=== PATIENT | female | born 1955 | race Caucasian/White ===

== ENCOUNTER 2020-02-04 09:32 | Outpatient (CLI) | payer MEDICARE, OTHER, SELFPAY ==
--- NOTE | ~2020-02-04 | CT_ITS ---
EXAMINATION: CT abdomen pelvis wo con DATE: 02/04/2020 09:59 INDICATION: Hematuria. Right lower quadrant pain and tenderness. TECHNIQUE: Computed tomography (CT) of the abdomen and pelvis was performed without intravenous contr ast. Automated exposure control and iterative reconstruction technique were employed. The dose-length product was 393.55 mGy-cm. COMPARISON: 10/09/2015 FINDINGS: Lung bases are clear. Heart size is normal. No pericardial or pleural effusion. Liver, gallbladder, s pleen, pancreas, bilateral adrenal glands and kidneys are normal. No urolithiasis. Bowels are unremar kable with no wall thickening or obstruction. Partially decompressed bladder is normal. The uterus is not identified and has likely been surgically resected. Pessary in the vaginal vault. No free intrap eritoneal gas or fluid. No pathologically enlarged abdominal or pelvic lymphadenopathy. Moderate disc height loss with sclerotic degenerative endplate changes at L2-L3. Otherwise minimal scattered degen erative skeletal changes. IMPRESSION: 1. No urolithiasis or other acute intra-abdominal/pelvic process. Reviewed, dictated and finalized at location A.
--- NOTE | ~2020-02-04 | XR_ITS ---
XR abdomen/kub 1V DATE: 02/04/2020 09:51 INDICATION: Unspecified abdominal pain TECHNIQUE: 2 supine AP views COMPARISON: None FINDINGS: There is a moderately prominent amount of fecal material within the colon but no evidence o f bowel obstruction. The psoas shadows are intact. No visceromegaly is evident. No significant abnorm al calcification is evident. The lung bases appear clear. Heart size appears normal. Degenerative disease at L2-3 primarily. IMPRESSION: Moderately prominent of fecal material in the colon; no bowel obstruction Reviewed, dictated and finalized at Location A. Reviewed, dictated and finalized at location A. IMPRESSION: Moderately prominent of fecal material in the colon; no bowel obstr uction
== END 2020-02-04 09:33 | disposition home or self-care (01) ==
LOC: ANHIMG 09:35
PROVIDERS: Visit Provider Nurse Practitioner Family
DX: R31.9 Hematuria, unspecified (principal); R10.31 Right lower quadrant pain; R10.819 Abdominal tenderness, unspecified site
CPT/HCPCS: 74018; 74176

== ENCOUNTER 2021-08-14 12:03 | Outpatient (CLI) | payer MEDICARE, SELFPAY ==
--- NOTE | ~2021-08-14 | XR_ITS ---
XR chest 2V DATE: 08/14/2021 12:28 INDICATION: Cough for 10 days. Wheezing. TECHNIQUE: PA and lateral views COMPARISON: October 22, 2016 two-view chest FINDINGS: Normal heart size. No hilar or mediastinal enlargement. No pulmonary infiltrate or consolidation, pleural effusion or pulmonary vascular congestion or pneumo thorax. IMPRESSION: No active cardiopulmonary disease Reviewed, dictated and finalized at location B. TY GRAND [employer]URY
== END 2021-08-14 12:04 | disposition home or self-care (01) ==
PROVIDERS: Visit Provider Nurse Practitioner Family
DX: R05.9 Cough, unspecified (principal)
CPT/HCPCS: 71046

== ENCOUNTER → 2021-11-06 13:14 | Outpatient (CLI) | payer MEDICARE, SELFPAY ==
--- NOTE | ~2021-11-06 | MM_ITS ---
EXAMINATION: MM screening [facility] BI w [facility] HISTORY: Screening mammogram TECHNIQUE: Craniocaudal and mediolateral oblique 3-D tomosynthesis images were obtained and synthetic 2-D images were generated. CAD analysis was submitted and interpreted. COMPARISON: 05/14/2019, 04/20/2018, 04/10/2016 BREAST PARENCHYMAL COMPOSITION: There are scattered areas of fibroglandular density. FINDINGS: There is stable architectural distortion in the left breast at the site of prior excisional biopsy. There is no suspicious mass, calcification, or architectural distortion to suggest malignanc y in either breast. There has been no suspicious interval change. IMPRESSION: 1. No mammographic evidence of malignancy. 2. Recommend routine screening mammography in one year. BI-RADS Category 2: Benign finding(s). Reviewed, dictated and finalized at location A.
--- NOTE | ~2021-11-06 | DEXA_ITS ---
Bone Density Report Name: CLAUDIA KEVIN Age: 66 Sex: Female Ethnicity: White Date of : 1955 Indication: osteopenia; monitoring treatment; asthma or emphysema; end stage renal disease; hysterectomy; postmenopausal Referring Provider: CASSIE MAKI Study: Bone densitometry was performed. Exam Date: November 06, 2021 Accession number: [id number] Bone Density: Region BMD T-score Z-score Classification AP Spine (L1-L4) 1.058 0.1 1.8 Normal Femoral Neck (Left) 0.678 -1.5 -0.1 Osteopenia Total Hip (Left) 0.788 -1.3 -0.1 Osteopenia Femoral Neck (Right) 0.626 -2.0 -0.5 Osteopenia Total Hip (Right) 0.744 -1.6 -0.4 Osteopenia Total Hip Mean 0.766 -1.5 -0.3 Osteopenia World Health Organization criteria for BMD impression classify patients as: Normal (T-score at or above -1.0), Osteopenia (T-score between -1.0 and -2.5), or Osteoporosis (T-score at or below -2.5). 10-year Fracture Risk: FRAX not reported because: Treated for osteoporosis Previous Exams: Region Exam Age BMD T-score BMD Change BMD Change Date g/cm2 vs Baseline vs Previous AP Spine(L1-L4) 11/06/2021 66 1.058 0.1 0.162* 0.071* 04/23/2019 64 0.987 -0.5 0.091* -0.049* 04/10/2016 61 1.037 -0.1 0.140* 0.082* 11/12/2012 57 0.954 -0.8 0.058* 0.003 03/30/2010 55 0.951 -0.9 0.055* 0.052* 01/15/2008 52 0.899 -1.3 0.003 0.003 11/05/2006 51 0.896 -1.4 Total Hip(Left) 11/06/2021 66 0.788 -1.3 -0.046* -0.010 04/23/2019 64 0.798 -1.2 -0.036* -0.029* 04/10/2016 61 0.827 -0.9 -0.007 0.048* 11/12/2012 57 0.779 -1.3 -0.055* -0.089* 03/30/2010 55 0.868 -0.6 0.034* 0.027 01/15/2008 52 0.841 -0.8 0.007 0.007 11/05/2006 51 0.834 -0.9 Total Hip(Right) 11/06/2021 66 0.744 -1.6 -0.003 0.032* 04/23/2019 64 0.711 -1.9 -0.035* -0.046* 04/10/2016 61 0.758 -1.5 0.011 -0.006 11/12/2012 57 0.763 -1.5 0.016 -0.040* 03/30/2010 55 0.803 -1.1 0.056* 0.020 01/15/2008 52 0.783 -1.3 0.036* 0.036* 11/05/2006 51 0.747 -1.6 *Denotes significance at 95% confidence level, LSC for AP Spine = 0.022 g/cm2, LSC for Total Hip = 0.027 g/cm2 Clinical Information Provided by Patient:
== END ==
PROVIDERS: PCP Family Medicine; Visit Provider Obstetrics & Gynecology Gynecology
DX: Z12.31 Encounter for screening mammogram for malignant neoplasm of breast (principal); Z78.0 Asymptomatic menopausal state; M85.852 Other specified disorders of bone density and structure, left thigh; M85.851 Other specified disorders of bone density and structure, right thigh
CPT/HCPCS: 77063; 77067; 77080

== ENCOUNTER → 2023-02-18 12:19 | Outpatient (CLI) | payer MEDICARE, OTHER, SELFPAY ==
--- NOTE | ~2023-02-18 | MM_ITS ---
EXAMINATION: MM screening [facility] BI w [facility] HISTORY: Screening mammogram TECHNIQUE: Craniocaudal and mediolateral oblique 3-D tomosynthesis images were obtained and synthetic 2-D images were generated. CAD analysis was submitted and interpreted. COMPARISON: 11/06/2021, 05/14/2019, 04/20/2018 bilateral screening mammogram examinations BREAST PARENCHYMAL COMPOSITION: There are scattered areas of fibroglandular density. FINDINGS: Stable mild fibroglandular asymmetry; history of prior left partial mastectomy, benign. The re is no evidence of suspicious mass, calcification, or new architectural distortion to suggest malig zain in either breast. There has been no suspicious interval change. IMPRESSION: 1. No mammographic evidence of malignancy. 2. Recommend routine screening mammography in one year. BI-RADS Category 2: Benign finding(s). Reviewed, dictated and finalized at location A.
== END ==
PROVIDERS: PCP Family Medicine; Visit Provider Obstetrics & Gynecology Gynecology
DX: Z12.31 Encounter for screening mammogram for malignant neoplasm of breast (principal)
CPT/HCPCS: 72072; 77063; 77067

== ENCOUNTER → 2023-02-18 12:24 | Outpatient (CLI) | payer MEDICARE, OTHER, SELFPAY ==
--- NOTE | ~2023-02-18 | XR_ITS ---
EXAMINATION: XR thoracic spine 3V DATE: 02/18/2023 13:49 INDICATION: Thoracic back pain TECHNIQUE: AP, lateral and lateral swimmer's views of the thoracic spine were obtained. COMPARISON: None. FINDINGS: Bone alignment is normal. There is no fracture. There is mild loss of intervertebral disc s pace height at multiple levels in the thoracic spine. Small degenerative osteophytes project from the anterior endplates of multiple vertebral bodies. The vertebral body heights are maintained. IMPRESSION: 1. Mild thoracic spondylosis without acute findings. Reviewed, dictated and finalized at location L.
== END ==
PROVIDERS: PCP Family Medicine; Visit Provider Family Medicine
DX: M47.894 Other spondylosis, thoracic region (principal)
CPT/HCPCS: 72072

== ENCOUNTER 2024-05-31 15:50 | Outpatient (CLI) | payer MEDICARE, OTHER, SELFPAY ==
--- NOTE | ~2024-05-31 | DEXA_ITS ---
Bone Density Report Name: CLAUDIA KEVIN Age: 69 Sex: Female Ethnicity: White Date of : 1955 Indication: postmenopausal; screening for osteoporosis; asthma or emphysema; hysterectomy; Referring Provider: CASSIE MAKI Study: Bone densitometry was performed. Exam Date: May 31, 2024 Accession number: [id number] Bone Density: Region BMD T-score Z-score Classification AP Spine(L1-L4) 1.075 0.3 2.2 Normal Femoral Neck (Left) 0.651 -1.8 -0.1 Osteopenia Total Hip (Left) 0.843 -0.8 0.5 Normal Femoral Neck (Right) 0.580 -2.4 -0.8 Osteopenia Total Hip (Right) 0.706 -1.9 -0.6 Osteopenia Total Hip Mean 0.775 -1.4 -0.1 Osteopenia World Health Organization criteria for BMD impression classify patients as: Normal (T-score at or above -1.0), Osteopenia (T-score between -1.0 and -2.5), or Osteoporosis (T-score at or below -2.5). 10-year Fracture Risk: FRAX not reported because: Treated for osteoporosis Clinical Information Provided by Patient: Smokes Is being treated for osteoporosis Has used the following medications: Fosamax (i.e. alendronate), Vitamin D Has the following medical conditions: Asthma or Emphysema, Hysterectomy Patient maximum height was 68.5 Menopause Age: 31 Drinks caffeinated beverages Onset of menses at age 14 Number of children 2 Impression: The patient has low bone mass, based on the Right Femoral Neck T-score. The patient has risk factors, including: smoking. Discussion: It is important to ask patients whether they are taking their medications and to encourage continued and appropriate compliance with their osteoporosis therapies to reduce fracture risk. It is also important to review their risk factors and encourage appropriate calcium and vitamin D intakes, exercise, fall prevention and other lifestyle measures. Follow-Up: Consider a repeat BMD and Vertebral Fracture Assessment (VFA) exam in 2 years or sooner if medically necessary, to reassess this patient's status. Reported by: SAMUEL on 05/31/2024 4:20:00 PM. Reviewed, dictated and finalized at location AKeshia PAPPAS
--- NOTE | ~2024-05-31 | MM_ITS ---
EXAMINATION: MM screening [facility] HISTORY: Screening TECHNIQUE: Craniocaudal and mediolateral oblique 3-D tomosynthesis images were obtained and synthetic 2-D images were generated. CAD analysis was submitted and interpreted. COMPARISON: Comparison to multiple prior studies sequentially, with oldest reviewed study dated 04/10. BREAST PARENCHYMAL COMPOSITION: Not dense: There are scattered areas of fibroglandular density. FINDINGS: There is a developing mass in the lower inner quadrant of the right breast, middle third, p artially obscured by fibroglandular tissue. The left breast is stable without evidence for malignancy . IMPRESSION: 1. Developing right breast mass. 2. Additional mammographic views and possible breast ultrasound are recommended. BI-RADS Category 0: Incomplete: Needs additional imaging evaluation. Reviewed, dictated and finalized at location B. IMPRESSION: 1. Developing right breast mass. 2. Additional mammographic views and possible breast ultrasound are recommended . BI-RADS Category 0: Incomplete: Needs additional imaging evaluation.
== END 2024-05-31 15:51 | disposition home or self-care (01) ==
LOC: ANHIMG 15:52
PROVIDERS: PCP Family Medicine; Visit Provider Obstetrics & Gynecology Gynecology
DX: Z12.31 Encounter for screening mammogram for malignant neoplasm of breast (principal); Z78.0 Asymptomatic menopausal state; R92.8 Other abnormal and inconclusive findings on diagnostic imaging of breast; M85.852 Other specified disorders of bone density and structure, left thigh; M85.851 Other specified disorders of bone density and structure, right thigh
CPT/HCPCS: 77063; 77067; 77080

== ENCOUNTER 2024-06-29 13:02 | Outpatient (CLI) | payer MEDICARE, OTHER, SELFPAY ==
--- NOTE | ~2024-06-29 | MMUS_ITS ---
EXAMINATION: MM diagnostic [facility] RT w [facility], US breast RT limited HISTORY: Follow-up right breast mass TECHNIQUE: Additional 3-D tomosynthesis images of the right breast were performed and synthetic 2-D i mages were generated. CAD analysis was submitted and interpreted. High resolution Limited right breas t ultrasound was performed. COMPARISON: Comparison to multiple prior studies sequentially, with oldest reviewed study dated 04/10/2016. BREAST PARENCHYMAL COMPOSITION: Not dense: There are scattered areas of fibroglandular density. FINDINGS: MAMMOGRAPHIC FINDINGS: There is a small radiolucent mass in the lower inner quadrant of the right breast, middle third. Ther e are no suspicious calcifications or architectural distortion. ULTRASOUND: Limited right breast ultrasound: At 3:00, 2 cm from the nipple there is a 6 mm cyst which corresponds to the mammographic finding. No suspicious masses to suggest malignancy. IMPRESSION: 1. No evidence for malignancy in the right breast. Benign finding. 2. Routine yearly screening mammogram and regular clinical breast examination are recommended. BI-RADS Category 2: Benign finding(s). Reviewed, dictated and finalized at location B. OR RESEARCH FELLOW IMPRESSION: 1. No evidence for malignancy in the right breast. Benign finding. 2. Routine yearly screening mammogram and regular clinical breast examination a re recommended. BI-RADS Category 2: Benign finding(s).
== END 2024-06-29 13:03 | disposition home or self-care (01) ==
PROVIDERS: PCP Family Medicine; Visit Provider Obstetrics & Gynecology Gynecology
DX: R92.8 Other abnormal and inconclusive findings on diagnostic imaging of breast (principal)
CPT/HCPCS: 76642; 77061; 77065; G0279

== ENCOUNTER 2025-05-17 12:37 | Outpatient (CLI) | payer MEDICARE, OTHER, SELFPAY ==
--- NOTE | ~2025-05-17 | XR_ITS ---
EXAMINATION: XR chest 2V 05/17/2025 12:59 INDICATION: Covid 19 infection PROCEDURE: 2 view chest COMPARISON: 08/14/2021 FINDINGS: The lungs are clear. The cardiomediastinal silhouette is within normal limits. There are no pleural effusions. There is no pneumothorax suspected. IMPRESSION: 1: NO ACUTE CARDIOPULMONARY DISEASE. Reviewed, dictated and finalized at location O.
== END 2025-05-17 12:38 | disposition home or self-care (01) ==
PROVIDERS: PCP Family Medicine; Visit Provider Nurse Practitioner Family
DX: U07.1 COVID-19 (principal); R05.9 Cough, unspecified
CPT/HCPCS: 71046